=== PATIENT | male | born 1960 | race Caucasian/White ===

== ENCOUNTER 2018-11-19 12:21 | Emergency (ER) | payer MEDICARE, OTHER ==
[2018-11-19] MEDS: KETOROLAC 30 MG INJ IM (13:15)
[2018-11-19] MEDS: HYDROCODONE/APAP (5/325) TAB PO (13:15)
== END 2018-11-19 14:21 | disposition home or self-care (01) ==
LOC: FTE 12:21
DX: S20.211A Contusion of right front wall of thorax, initial encounter (principal); W22.03XA Walked into furniture, initial encounter; Y92.9 Unspecified place or not applicable
CPT/HCPCS: 71100; 96372; 99284-25